=== PATIENT | male | born 1980 | race Caucasian/White ===

== ENCOUNTER 2025-01-04 15:37 | Emergency (ER) | payer BC ==
[~2025-01-04] VITALS: Ht 167.6 cm; Wt 101.1 kg
[2025-01-04 15:42] VITALS: TEMP 98.2
--- NOTE | 2025-01-04 15:54 | ELECTROCARDIOGRAPH REPORT ---
[facility] Test Date: 2025-01-04 Test Time: 15:52:46 Pat Name: KAUSHIK RODRIGUEZ Department: [facility] Patient ID: [id number] Room: Gender: M Culinary Chef: : 1980 Requested By: YAHAIRA PERSON Order Number: [id number] Reading MD: Dr. MATTI Leary Measurements Intervals [place] Rate: 55 P: 47 MT: 208 QRS: 68 QRSD: 113 T: 76 QT: 447 QTc: 428 Interpretive Statements Sinus bradycardia Borderline prolonged MT interval Incomplete right bundle branch block Electronically Signed On 01-05-2025 12:58:[address] MATTI Leary Please click the below link to view image of tracing.
--- NOTE | 2025-01-04 18:08 | Physician Documentation ---
History of Present Illness ~ General Chief Complaint: General Stated Complaint: MULTIPLE COMPLAINTS Time Seen by MD: 17:38 Source: patient, family Mode of Arrival: POV, Ambulatory Exam Limitations: no limitations History of Present Illness Initial Comments 44-year-old male brought in by mom for multiple medical complaints 1 of which is a vertigo type symptoms where he states that the floors moving in the [place]mas are moving and that when he closes his eyes it does go away. Patient has never had these symptoms in the past. Symptoms have started approximately 7-10 days ago and he has had multiple trips to [facility]. The latest trip was on January 02, 2025. Patient has also had head CTs chest x-rays and other testing which have all ultimately I have been unremarkable for any significant findings. 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 Patient states that he does have a stiff neck but is able to turn and move his head in all directions as well as his chin to his chest. Patient's other symptoms include a lack of appetite confusion and according to his mom change in personality. Patient denies any objective fever but states hot and cold chills. The only other possible triggering event was that he was placed on a generic of Entresto. Medication Reconciliation Allergies: Coded Allergies: No Known Allergies (Unverified , 01/04/25) Past Medical History Past Medical History: *CARDIOVASCULAR* Past Surgical History: noncontributory Lives with: Family Lives In: Home Occupation: employed Review of Systems All Other Systems at this time: Reviewed and Negative Neurological: Reports: see HPI Psychiatric: Reports: see HPI Physical Exam Physical Exam Vital Signs: RN Vital Signs have been reviewed: Yes, Temperature: 98.2, Source: Temporal, Heart Rate: 55, Respiratory Rate: 16, BP: 126/68, Pulse Oximetry: 97, Weight: 101.100 Oxygen Flow Rate: 0 Physical Exam General: Alert, no apparent distress. HEENT: PERRL, EOMI, no injection, moist mucous membranes. Ears unremarkable, nares unremarkable normal pharyngeal findings Neck: Full range of motion. No lymphadenopathy full range of motion able to place chin to chest Respiratory: Lungs clear, no respiratory distress. Chest: No accessory muscle use. Cardiovascular: Regular rate and rhythm, no murmurs. Extremities: Normal range of motion, no deformity. Neurologic: Oriented x4. Psychiatric: Flat affect but answering questions appropriately Skin: Normal color, warm and dry. No edema, no ecchymosis. Progress Results/Orders Results/Orders Vital Signs 01/04/25 01/04/25 01/04/25 01/04/25 15:42 16:00 16:08 17:31 Temp 98.2 Pulse 58 56 55 Resp 18 16 16 16 B/P (MAP) 134/69 116/65 (82) 126/68 (87) Pulse Ox 99 98 97 O2 Flow Rate 0 0 0 01/04/25 01/04/25 01/04/25 01/04/25 18:45 19:25 19:27 20:55 Pulse 58 50 54 Resp 12 12 12 12 B/P (MAP) 134/74 (94) 129/65 (86) 146/74 (98) Pulse Ox 99 98 95 O2 Flow Rate 0 0 Laboratory Tests Test 01/04/25 17:30 01/04/25 18:30 01/04/25 18:44 Glucometer 81 White Blood Count 9.0 Red Blood Count 5.67 Hemoglobin 17.2 Hematocrit 51.2 Mean Corpuscular Volume 90.3 Mean Corpuscular Hemoglobin 30.3 Mean Corpuscular Hemoglobin Concent 33.5 Red Cell Distribution Width 14.9 H Platelet Count 264 Mean Platelet Volume 7.0 L Neutrophils (%) (Auto) 74.8 Lymphocytes (%) (Auto) 20.0 L Monocytes (%) (Auto) 4.7 Eosinophils (%) (Auto) 0.2 Basophils (%) (Auto) 0.3 Neutrophils # (Auto) 6.7 Lymphocytes # (Auto) 1.8 Monocytes # (Auto) 0.4 Eosinophils # (Auto) 0.0 Basophils # (Auto) 0.0 CBC Comment Sodium Level 138 Potassium Level 4.5 Chloride Level 105 Carbon Dioxide Level 25.1 Anion Gap 8 Blood Urea Nitrogen 17 Creatinine 1.06 Estimated GFR/1.73 m2 76 BUN/Creatinine Ratio 16.0 Glucose Level 89 Calcium Level 8.9 Albumin 3.4 Chemistry Comments Ethyl Alcohol Level < 10 Monoscreen Negative Urine Specimen Description Non-specified Urine Color Yellow Urine Clarity Clear Urine pH 6.0 Urine Specific [place] <=1.005 Urine Protein Negative Urine Glucose (UA) >=1000 H Urine Ketones Negative Urine Occult Blood Negative Urine Nitrite Negative Urine Bilirubin Negative Urine Urobilinogen 0.2 Urine Leukocyte Esterase Negative Urine RBC None seen Urine WBC None seen Urine Squamous Epithelial Cells None seen Urine Bacteria None seen Urine Culture Indicated Not ind Volume Urine Centrifuged 10 ml Urine Comment Urine Opiates Screen Negative Urine Methadone Screen Negative Urine Fentanyl Screen Negative Urine Barbiturates Screen Negative Urine Phencyclidine Screen Negative Urine Amphetamines Screen Negative Urine Benzodiazepines Screen Negative Urine Cocaine Screen Negative Urine Cannabinoids Screen Negative Drug Screen Comment EKG/XRAY/CT/US/VASC/MRI EKG : Additional Comment Sinus bradycardia rate of [address] no acute [address]-T abnormalities Medical Decision Making Additional information obtaine: old records Findings Patient with a multitude of symptoms very disgruntled family due to not wanting to do a lumbar puncture for possible viral meningitis. Patient's symptoms are more subjective. Negative hints exam and neurologic exam unremarkable. Smooth EOMs. No fevers here no treated fevers or documented fevers at home. Peggy medical records reviewed including his labs from the . Patient also states that it could be a reaction to a new medication. A head CT was unremarkable for any significant findings. A chest x-ray was also unremarkable. Labs been ordered to evaluate further. Patient with complaints of lack of appetite and confusion also could be a severe calorie deficit although patient's weight is above normal with BMI of 36. Differential Diagnosis Vertigo, dizziness, viral illness, mono, psych Departure Disposition: 01 HOME / SELF CARE / HOMELESS Impression: Primary Impression: General medical exam Additional Impression: Vertigo Condition: Stable Additional Instructions: Thank you for coming to the hospital today. After a thorough evaluatio nincluding review of your medical history, physical and neurological exams, and multiple diagnostic testsno evidence of a serious infection or neurological problem was found. Your neurological exam, including specialized tests for balance and eye movements, was normal. You have not had any fever, and your recent imaging and laboratory results are reassuring. Why a lumbar puncture was not performed: A lumbar puncture (spinal tap) is used to diagnose infections like meningitis. However, the classic signs of meningitisfever, neck stiffness, and confusionwere not present. In adults, the absence of these symptoms and a normal neurological exam make meningitis very unlikely, so a lumbar puncture is not needed. Performing unnecessary procedures can carry risks and discomfort without benefit. Possible cause of symptoms: Your symptoms may be related to a new medication. Some medicines can cause confusion, changes in appetite, and other side effects. If you notice worsening symptoms, new problems, or have questions about your medication, please contact your healthcare provider. What to watch for: Return to the hospital immediately if you develop a fever, severe headache, neck stiffness, new confusion, trouble speaking, weakness, or seizures. If you experience any new or worsening symptoms, or if you have concerns about your medication, please call your doctor. General advice: Try to maintain regular meals and hydration, even if your appetite is low. Rest as needed and avoid strenuous activity until you feel better. Keep a list of your medications and any changes in symptoms to share with your healthcare provider. Follow-up: Additional lab tests have been ordered. You will be contacted if any results require further action. Please schedule a follow-up appointment with your primary care provider to review your symptoms and medications. If you have any questions or concerns, do not hesitate to reach out. Your health and safety are our top priority. Referrals: NO PRIMARY CARE PROVIDER (PCP) Prescriptions Meclizine Hcl (MECLIZINE HCL) 12.5 Mg Tablet 1 TAB PO Q8H for dizziness for 10 Days, #30 TAB 0 Refills Prov: UZIEL MOLINA [facility] 01/04/25 Education Educated: Patient Educated regarding: diagnosis, treatment, need for follow up Signature Scribe Signature: No scribe Attestation: The note accurately reflects work and decisions made by me.Chely Higgins - [facility] 01/04/25 18:10 CHELY HIGGINS NP Jan 04, 2025 18:08 UIZEL MOLINA [facility] Jan 04, 2025 21:28
[2025-01-04 18:38] LABS: MEAN PLATELET VOLUME 7.0 FL (7.4-10.4); RED CELL DISTRIBUTION WIDTH 14.9 % (11.5-14.5)
[2025-01-04 18:52] LABS: CREATININE 1.06 MG/DL (0.60-1.10); ETHANOL < 10 MG/DL (<10); TOTAL CARBON DIOXIDE 25.1 MMOL/L (24-32); eCRCL 80 ML/MIN; eGFR 76 ML/MIN
[2025-01-04 19:00] LABS: MONOTEST NEGATIVE (Neg)
[2025-01-04 19:01] LABS: LEUKOCYTE ESTERASE ,URINE NEGATIVE (Neg); NITRITES, URINE NEGATIVE (Neg); OCCULT BLOOD,URINE NEGATIVE (Neg)
[2025-01-04 19:08] LABS: UA COLLECTION TYPE NON-SPECIFIED
[2025-01-04 19:09] LABS: URINE AMPHETAMINE SCREEN NEGATIVE (Neg); URINE BARBITUATE SCREEN NEGATIVE (Neg); URINE BENZODIAZEPINES SCREEN NEGATIVE (Neg); URINE CANNABINOID SCREEN NEGATIVE (Neg); URINE COCAINE SCREEN NEGATIVE (Neg); URINE METHADONE SCREEN NEGATIVE (Neg); URINE OPIATE SCREEN NEGATIVE (Neg); URINE PHENCYCLIDINE SCREEN NEGATIVE (Neg)
[2025-01-04 19:11] LABS: SQUAMOUS EPITHELIAL CELL,UR NONE SEEN /LPF (FEW)
[2025-01-04] MEDS ORDERED: MECL-231 PO (21:27)
[2025-01-04 21:38] VITALS: BP 141/71; PULSE 59; RESP 14; O2SAT 97
== END 2025-01-04 21:41 | disposition home or self-care (01) ==
LOC: ER 16:17
DX: Z00.00 Encounter for general adult medical examination without abnormal findings (principal); R42 Dizziness and giddiness
CPT/HCPCS: 36415; 80048; 80305; 80320; 81001; 82948; 85025; 86308; 93005; 99285